=== PATIENT | male | born 1990 | race Caucasian/White ===

== ENCOUNTER 2016-07-18 21:11 | Emergency (ER) | payer OTHER ==
[2016-07-18 21:21] VITALS: BP 152/95
[2016-07-18] MEDS ORDERED: cefTRIAXone 1 GM VIAL IM STA (21:47)
[2016-07-18] MEDS ORDERED: SULFAMETH/TRIMETH DS 800/160 MG TABLET PO STA (21:47)
[2016-07-18] MEDS ORDERED: LIDOCAINE 1% 2 ML VIAL ONE (21:52)
[2016-07-18] MEDS ORDERED: SULFAMETH/TRIMETH DS 800/160 MG TABLET PO ONE (21:52)
[2016-07-18] MEDS ORDERED: cefTRIAXone 1 GM VIAL ONE (21:52)
--- NOTE | 2016-07-18 21:58 | ED Physician Documentation ---
History of Present Illness - Stated complaint Stated Complaint: RT ARM PX - Chief complaint Chief Complaint: Wound - History obtained from History obtained from: Patient, Family - History of Present Illness Timing: Today Pain level max: 3 Pain level now: 3 Improved by: nothing Worsened by: nothing - Additonal information Additional information: Patient with a right antecubital fossa swelling and redness that started today. He has a type I diabetic. Denies any known injury. Denies any IV drug use. Review of Systems Constitutional: denies: Fever GI: denies: Abdominal Pain, Nausea, Vomiting Skin: denies: Lesions Musculoskeletal: denies: Neck pain, Back pain Neurologic: denies: Headache PD PAST MEDICAL HISTORY - Past Medical History Past Medical History: Yes Endocrine/Autoimmune: Type 1 diabetes - Past Surgical History Past Surgical History: Yes - Present Medications Home Medications: Ambulatory Orders Medication Instructions Recorded Confirmed Cephalexin [Keflex] 500 mg PO Q6H #28 capsule 07/18/16 Insulin Glargine [Lantus] 28 unit SUBQ QPM 07/18/16 07/18/16 Insulin Lispro [HumaLOG] 1 unit SQ 07/18/16 Sulfamethox/Trimeth 800/160 1 each PO BID #14 tablet 07/18/16 [Bactrim Ds 800/160] - Allergies Allergies/Adverse Reactions: Allergies Allergy/AdvReac Type Severity Reaction Status Date / Time No Known Drug Allergies Allergy Verified 07/18/16 21:20 - Social History Does the pt smoke?: No Smoking Status: Never smoker Does the pt have substance abuse?: No - Immunizations Immunizations are current?: Yes - POLST Patient has POLST: No PD ED PE NORMAL - Vitals Vital signs reviewed: Yes - General General: Alert and oriented X 3, No acute distress - HEENT HEENT: Moist mucous membranes - Cardiac Cardiac: RRR, No murmur - Respiratory Respiratory: No respiratory distress, Clear bilaterally - Derm Derm: Warm and dry - Extremities Extremities: Other (R UE - 6x4cm erythema, warmth, TTP to the R AC fossa. No induration or fluctuance) - Neuro Neuro: Alert and oriented X 3 - Psych Psych: Normal mood, Normal affect Results - Vitals Vitals: Vital Signs - 24 hr 07/18/16 21:17 Temperature 37.6 C H Heart Rate 100 Respiratory 18 Rate Blood Pressure 152/95 H O2 Saturation 100 Oxygen O2 Source Room air PD MEDICAL DECISION MAKING - ED course Complexity details: considered differential, d/w patient ED course: Patient is a type I diabetic who presents to the emergency department with what appears to be a cellulitis to the right antecubital fossa. Unclear etiology. Given Rocephin and Bactrim here. Will place on Keflex and Bactrim for home. He is very well-appearing, nontoxic. Afebrile. He will return here if he fails to improve in the next 12-24 hours. Patient states that he checked his blood sugar just prior to arrival and it was in the 100s. Patient counseled regarding signs and symptoms for which I believe and urgent re-evaluation would be necessary. Patient with good understanding of and agreement to plan and is comfortable going home at this time This document was made in part using voice recognition software. While efforts are made to proofread this document, sound alike and grammatical errors may occur. Departure - Departure Disposition: 01 Home, Self Care Clinical Impression: Cellulitis Qualifiers: Site of cellulitis: extremity Site of cellulitis of extremity: upper extremity Laterality: right Qualified Code(s): L03.113 - Cellulitis of right upper limb Condition: Good Instructions: ED Infec Skin Cellulitis Follow-Up: Richard Jefferson DO [Primary Care Provider] - Within 3 Days Prescriptions: Sulfamethox/Trimeth 800/160 [Bactrim Ds 800/160] 1 each PO BID #14 tablet Cephalexin [Keflex] 500 mg PO Q6H #28 capsule Comments: Take all antibiotics until gone. Return if you worsen. This should improve over the next 12-24 hours. Your blood pressure was elevated today on check in to the emergency department. This does not mean that you have hypertension, it is a common phenomenon to check into the emergency department and have elevated blood pressure. I recommend that you see your primary care physician within the week to have it rechecked when you're feeling better. Discharge Date/Time: 07/18/16 22:15
== END 2016-07-18 22:15 | disposition home or self-care (01) ==
LOC: ED 21:11
DX: L03.113 Cellulitis of right upper limb (principal); R03.0 Elevated blood-pressure reading, without diagnosis of hypertension; E10.9 Type 1 diabetes mellitus without complications; Z79.4 Long term (current) use of insulin
CPT/HCPCS: 96372; 99283; A9270

== ENCOUNTER 2019-07-02 05:59 | Outpatient (CLI) | payer SELFPAY | END 2019-07-02 06:00 | disposition EMS.NT | LOC: EMS 05:59 | PROVIDERS: ATTEND Surgery | DX: R56.9 Unspecified convulsions (principal); R73.09 Other abnormal glucose ==

== ENCOUNTER 2022-04-22 13:25 | Outpatient (CLI) | payer BC ==
--- NOTE | 2022-04-23 09:14 | Ultrasound Report ---
PROCEDURE: Retroperitoneal INDICATIONS: ACUTE KIDNEY INJURY TECHNIQUE: Real-time scanning was performed of the retroperitoneal organs, with image documentation. COMPARISON: None. FINDINGS: Kidneys: Kidneys are normal in size. Right kidney measures 11.7 cm long; left kidney measures 12.4 cm long. Right renal cortical thickness is 1.3 cm; left renal cortical thickness is 1.6 cm. No beulah d masses, hydronephrosis, or nephrolithiasis. Simple appearing cyst at the left upper kidney measuri ng up to 1.5 cm. Possible increase in cortical echogenicity bilaterally. Bladder: Pre-void bladder volume is 116 mL. Post-void residual is 4 mL. Pre-void images demonstrat e no intraluminal masses or stones. On pre-void images, both ureteral jets are noted with color Dopp ler interrogation. (Of note, ureteral jets may not be detectable in up to 25% of cases due to insuff icient differences in specific gravity between ureteral and bladder urine). Miscellaneous: Trace pelvic and right lower quadrant free fluid, nonspecific. IMPRESSION: 1. No hydronephrosis. 2. Possible increase in renal cortical echogenicity, finding that can be seen in the setting of medic al renal disease. 3. Trace pelvic and right lower quadrant free fluid, unclear etiology or clinical significance. Reviewed by: Sandor Harris MD on 04/23/2022 9:12 AM PST Approved by: Sandor Harris MD on 04/23/2022 9:12 AM PST Station ID: [id number]
== END 2022-04-22 13:26 | disposition home or self-care (01) ==
LOC: DI 13:25
PROVIDERS: ATTEND Internal Medicine
DX: N17.9 Acute kidney failure, unspecified (principal)

== ENCOUNTER 2022-04-26 10:18 | Outpatient (CLI) | payer BC | END 2022-04-26 10:19 | disposition left against medical advice (07) | LOC: EMS 10:18 | DX: E10.649 Type 1 diabetes mellitus with hypoglycemia without coma (principal); I10 Essential (primary) hypertension ==

== ENCOUNTER 2022-08-20 09:12 | Outpatient (CLI) | payer BC | END 2022-08-20 23:59 | disposition EMS.NT | LOC: EMS 09:12 | DX: E11.649 Type 2 diabetes mellitus with hypoglycemia without coma (principal) ==

== ENCOUNTER 2022-08-20 20:54 | Outpatient (CLI) | payer BC ==
--- NOTE | 2022-08-20 23:14 | Ultrasound Report ---
PROCEDURE: Retroperitoneal INDICATIONS: MOUSTAPHA TECHNIQUE: Real-time scanning was performed of the retroperitoneal organs, with image documentation. COMPARISON: None. FINDINGS: Kidneys: Right kidney measures 10.7 cm long; left kidney measures 11.3 cm long. Right renal cortica l thickness is 1.3 cm; left renal cortical thickness is 1.9 cm. No hydronephrosis. There is increase d renal cortical echogenicity compatible with medical renal disease. Bladder: Pre-void bladder volume is 131 mL. Post-void residual is 110 mL. Pre-void images demonstr ate no intraluminal masses or stones. On pre-void images, bilateral ureteral jets are noted with col or Doppler interrogation. Miscellaneous: No free abdominal fluid. IMPRESSION: 1. No evidence of hydronephrosis. 2. Increased renal cortical echogenicity bilaterally compatible with medical renal disease. Reviewed by: Dominick Marshall MD on 08/20/2022 11:13 PM PDT Approved by: Dominick Marshall MD on 08/20/2022 11:13 PM PDT Station ID: [id number]
== END 2022-08-20 20:55 | disposition home or self-care (01) ==
LOC: DI 20:54
PROVIDERS: ATTEND Internal Medicine Nephrology
DX: N17.9 Acute kidney failure, unspecified (principal); N32.0 Bladder-neck obstruction

== ENCOUNTER 2023-01-06 13:42 | Outpatient (CLI) | payer MEDICARE, OTHER | END 2023-01-06 13:43 | disposition EMS.NT | LOC: EMS 13:42 | DX: E10.649 Type 1 diabetes mellitus with hypoglycemia without coma (principal) ==